=== PATIENT | female | born 1990 | race Caucasian/White ===

== ENCOUNTER 2017-01-30 07:25 | Emergency (ER) | payer MEDICAID ==
--- NOTE | ~2017-01-30 | ER ---
PATIENT'S NAME: KIM PENA [facility] AGE: 26 Y [address] ROOM: [place] [id number] LOCATION: [facility] ADMIT DATE: 01/30/2017 ER/Outpatient Report DISCHARGE DATE: 01/30/2017 FAMILY PHYSICIAN: PHYSICIAN, NO ATTENDING PHYSICIAN: Tamir Dudley Admission date and time documented on the medical record. I saw the patient at 0735 hours. CHIEF COMPLAINT: Mid upper abdominal pain. HISTORY OF PRESENT ILLNESS: This patient is a 26-year-old female who was woken up from sleep around 0530 hours with severe mid upper epigastric pain that radiated down to her pubic bone. She has some back pain, but she has chronic back pain. She has some pain with inspiration; however, no shortness of breath or chest pain. No headache or eyes, ears, nose, throat, neck, or spine pain. No dizziness, lightheadedness, syncope, or near syncope. No fall or trauma. No recent colds, coughs, flus, fever, chills, or sweats. No diarrhea. No urinary symptomatology. No joint or muscle swelling, redness, or pain. No skin eruptions or rash. No history of neurologic changes, psychiatric issues, or endocrine problems. HOME MEDICATIONS: None. ALLERGIES: NONE. SOCIAL HISTORY: The patient smokes half a pack of cigarettes per day. Nondrinker. Denies any illicit drug use. SIGNIFICANT PAST MEDICAL HISTORY: Tobacco abuse. Remote alcohol and illicit drug use. OPERATIONS: None. REVIEW OF SYSTEMS: All systems reviewed by me are negative with the exception of those discussed in the History of Present Illness. PHYSICAL EXAMINATION: PATIENT'S NAME: KIM PENA [facility] AGE: 26 Y [address] ROOM: [place] [id number] LOCATION: [facility] ADMIT DATE: 01/30/2017 ER/Outpatient Report DISCHARGE DATE: 01/30/2017 FAMILY PHYSICIAN: PHYSICIAN, NO ATTENDING PHYSICIAN: Tamir Dudley VITAL SIGNS: Temperature 97.3 tympanic, pulse 58, respirations 17, blood pressure 129/88, and O2 on room air is 99%. HEENT: Head: Normocephalic. Eyes, Ears, Nose, and Throat: Clear. Mucous membranes moist. NECK: Negative. SPINE: Negative. LUNGS: Clear. Good air flow. No rales, rhonchi, or wheezes. HEART: Regular. Pulses palpable. ABDOMEN: Soft and nondistended. Tender in the mid epigastric area to palpation. No true guarding or rigidity. No rebound tenderness. No palpable masses. No organomegaly palpable. No CVA tenderness. Good bowel tones EXTREMITIES: Intact. NEUROVASCULAR: Intact. SKIN: Clear. No skin eruptions or rash. LABORATORY DATA: Three-way abdominal x-ray showed no perforation, obstruction, or acute lung infiltrate. We will review x-ray with the radiologist. Laboratory: CMS was normal except for a slightly low potassium of 3.5, low anion gap of 9.5, elevated glucose of 103. Amylase and lipase were normal. CRP was less than 0.29. White count was 5600 with 46 segs, 38 lymphs, 7 monos, 8 eos, and 1 baso; hemoglobin was 14.5; hematocrit 42.4; and platelet count was 261,000. Urine showed 20 to 50 whites, 0 to 2 reds, 2 to 5 epithelial cells, many bacteria, 2+ mucus per high-powered field, and positive nitrites. Culture pending. Urine test was negative. H pylori was negative. EMERGENCY DEPARTMENT COURSE: I did start the patient on IV normal saline in the emergency department and gave her IV morphine for pain and Zofran for nausea and vomiting. IMPRESSION: Urinary tract infection with abdominal pain and nausea. PLAN: The patient is dismissed home. Observation. Activity as tolerated. Good fluid intake. Balanced diet. Continue present home care. Cipro 500 mg twice a day for a week. [place] 7.5/325 as needed for pain, #10. Follow up with personal physician as needed. Discussion ensued with the patient concerning my findings and recommendations, she understands. PATIENT'S NAME: KIM PENA [facility] AGE: 26 Y [address] ROOM: [place] [id number] LOCATION: ED ADMIT DATE: 01/30/2017 ER/Outpatient Report DISCHARGE DATE: 01/30/2017 FAMILY PHYSICIAN: PHYSICIAN, NO ATTENDING PHYSICIAN: Tamir Dudley MD SDS/modl /[id number] d: 01/30/17 1102 t: 01/30/17 1352, OUTPATIENT REPORT
[~2017-01-30 07:25] MED LIST: ALBUTEROL IH; DERMOPLAST SPRA56 GM TOP; LANSINOH7 GM TOP; MOTRIN800 MG PO; PERCOCET 5-3251 EACH PO; PRENATAL 1+1)(P1 TAB PO; TUCKS1 EACH TOP; TUMS200 MG PO
[2017-01-30 07:50] LABS: BILIRUBIN URINE NEGATIVE (NEGATIVE); BLOOD URINE 10 /UL (NEGATIVE); GLUCOSE URINE NEGATIVE (NEGATIVE); KETONE URINE NEGATIVE (NEGATIVE); LEUKOCYTES URINE 100 /UL (NEGATIVE); NITRITE URINE POSITIVE (NEGATIVE); PROTEIN URINE 15 mg/dL (NEGATIVE); UROBILINOGEN URINE 1 mg/dL (NORMAL)
[2017-01-30 07:51] LABS: COLOR URINE YELLOW (YELLOW); TURBIDITY URINE 1+ (CLEAR)
[2017-01-30 08:01] LABS: BASOPHIL % 0.7 %; EOSINOPHIL # 0.4 K/uL (0.0-0.5); EOSINOPHIL % 7.8 %; HEMATOCRIT 42.4 % (33.0-46.0); HEMOGLOBIN 14.5 g/dL (11.0-15.0); IMMATURE GRANULOCYTE % 0.2 %; LYMPHOCYTE # 2.1 K/uL (0.8-4.0); LYMPHOCYTE % 37.9 %; MCH 31.6 pg (27.0-34.0); MCHC 34.2 gm/dL (32.0-36.5); MCV 92.4 fl (83.0-98.0); MONOCYTE # 0.4 K/uL (0.0-1.0); MONOCYTE % 7.1 %; NEUTROPHIL # (ANC) 2.6 K/uL (1.8-7.8); NEUTROPHIL % 46.3 %; NRBC % 0 /100WBC (0-0.00); PLATELET COUNT 261 K/uL (150-450); RBC 4.59 M/uL (3.50-5.00); RDW-CV 11.7 % (11.9-14.6); WBC 5.6 K/uL (4.0-11.0)
[2017-01-30 08:07] LABS: BACTERIA URINE MANY (NEGATIVE); MUCUS URINE 2+ (NEGATIVE); RBC URINE 0-2 #/HPF (NEGATIVE); WBC URINE 20-50 #/HPF (NEGATIVE)
[2017-01-30 08:18] LABS: ALK PHOS 68 IU/L (33-138); ALT 14 IU/L (12-78); ANION GAP 9.5 (10.0-19.0); AST 10 IU/L (10-40); BLOOD UREA NITROGEN 11 mg/dL (6-24); CALCIUM 8.7 mg/dL (8.5-10.5); CHLORIDE 109 mMol/L (96-110); CO2 25 mMol/L (22-32); CREATININE 0.9 mg/dL (0.5-1.1); ESTIMATED GFR (MDRD EQUATION) > 60; POTASSIUM 3.5 mMol/L (3.7-5.1); SODIUM 140 mMol/L (135-145); TOTAL BILIRUBIN 0.4 mg/dL (0.0-1.5); TOTAL PROTEIN 7.3 g/dL (6.0-8.4)
== END 2017-01-30 09:04 | disposition disaster alternative care site (69) ==
LOC: GMED 07:25
PROVIDERS: Emergency Medicine
DX: N39.0 Urinary tract infection, site not specified (principal); F17.210 Nicotine dependence, cigarettes, uncomplicated
CPT/HCPCS: J2270; J2405; J7030